=== PATIENT | female | born 1945 | race Hispanic/Latino ===

== ENCOUNTER 2016-07-25 12:46 | Inpatient (IN) | payer MEDICARE, MEDICAID ==
[~2016-07-25] VITALS: Ht 152.4 cm; Wt 122.0 kg
[~2016-07-25 12:46] MED LIST: Albuterol INHALATION; Albuterol/Ipratropium NEB; DULO30CA50 PO; LISI-610 PO; TIZA4TAB4 PO
[2016-07-25 12:49] VITALS: BP 144/80; PULSE 79; RESP 22; O2SAT 92
[2016-07-25 14:08] LABS: BASOPHILS % (AUTO) 0.8 % (0-3); EOSINOPHILS % (AUTO) 1.2 % (0-5); MONOCYTES % (AUTO) 10.2 % (4-12); Mean Corpuscular Volume 89.8 fL (81-100); NEUTROPHILS % (AUTO) 59.2 % (40-74); Platelet Count 275 bil/L (150-400)
[2016-07-25 14:35] LABS: Magnesium 2.2 mg/dL (1.6-2.6)
--- NOTE | 2016-07-25 14:57 | ED.REPORT ---
HPI-General Illness Date of Service July 25, 2016 ED Provider: Jayy Ritter DO Pt is a 70 y.o. female with a hx of COPD, on 2L of home O2, and HTN who presents to the ED c/o bilateral lower extremity weakness gradually worsening over the last week and rapidly worsening today. Pt reports associated difficulty ambulating, right arm "muscular trouble", and bilateral lower extremity pain. She states that her knees have also been "giving out". She claims that she had similar sx about 1 year ago and it was recommended that she take Vitamin D. Pt has an appointment with her PCP this week. Nursing Notes Stated Complaint: WEAKNESS IN LEGS Chief Complaint: General Complaint Nursing Notes Reviewed: Yes Allergies: Coded Allergies: nickel (Unverified Allergy, Severe, Rash, 07/25/16) Scheduled ([Albuterol/Ipratropium]) 3 ML NEBU 3 ML NEB TID Bimatoprost (Lumigan) 45 Drop/2.5 Ml Ophsoln 1 GTT AFFECT_EYE BID Brimonidine Tartrate (Alphagan P) 5 Ml Drops 1 GTT AFFECT_EYE BID Lisinopril (Lisinopril) 30 Mg Tablet 1 TAB PO DAILY Tramadol (Tramadol) 50 Mg Tablet 1 TAB PO DAILY Scheduled PRN ([Albuterol]) 60 PUFF/8 GM INHALER 2 PUFF INHALATION Q4H PRN PRN For Wheezing Lorazepam (Ativan) 0.5 Mg Tablet 1 TAB PO DAILY PRN PRN For Anxiety Miscellaneous Medications Cholecalciferol (Vitamin D3) (Vitamin D3) 10,000 Unit Capsule 10,000 UNIT PO General Time Seen by MD: 14:56 Chief Complaint Weakness (Bilateral lower extremities) Past Medical History Past Medical History Sleep apnea Inguinal hernia Reports: Asthma, COPD, Hypertension Past Surgical History Bladder surgery Bowel obstruction Reports: Appendectomy, Hysterectomy Smoking History Current Every Day Smoker Social History Alcohol Use: Denies alcohol use Drug Use: Denies drug use Other Social History: Ambulatory Status Independent Review of Systems Full Review of Systems Neurologic: Reports: Abnormal movement (Right arm), Problem walking (due to weakness), Weakness (Bilateral lower extremities) Complete sys rev & neg: except as marked. Physical Exam Vital Signs Vital Signs Date Time Temp Pulse Resp B/P Pulse Ox O2 Delivery O2 Flow Rate FiO2 07/25/16 18:58 36.5 82 18 156/72 95 Nasal Cannula 2 07/25/16 15:40 37 57 20 120/75 92 Nasal Cannula 3 07/25/16 12:49 35.9 79 22 144/80 92 Room Air Initial VS: Reviewed Extremities: Vascular intact, Neuro intact Psychiatric: Mood/affect normal, Behavior normal, Normal thought content General/Constitutional: Awake, Alert, Well appearing, Well developed, Well hydrated, Well nourished, Not toxic appearing Appearance / Presentation: Positive: Obese, morbidly Head / Eyes: Atraumatic, Normocephalic, PERRL Respiratory / Chest: Atraumatic, Breath sounds NL, Breath sounds = bilat, No respiratory distress Cardiovascular: Heart rate NL, Regular rhythm, Heart sounds NL, Peripheral circulation NL Abdomen: Atraumatic, Soft, Non-tender, No guarding, No rebound, No distention Neurologic: Oriented X3, Speech NL Full NIH assessment conducted and is 0 Romberg test is positive, patient falling forward Interpretation & Diagnostics Lab Results Interpretation Result Diagram: 07/25/16 1328 07/25/16 1328 Test 07/25/16 13:28 07/25/16 16:19 White Blood Count 12.2th/mm3 (3.8-10.1) Red Blood Count 5.41mil/mm3 (3.90-5.20) Hemoglobin 15.7g/dL (12.0-15.6) Hematocrit 48.6% (35.0-46.0) Mean Corpuscular Volume 89.8fL (81-100) Mean Corpuscular Hemoglobin 29.0pg (27.0-35.0) Mean Corpuscular Hemoglobin Concent 32.3% (32.0-37.0) Red Cell Distribution Width 15.4% (12.3-15.4) Platelet Count 275bil/L (150-400) Neutrophils (%) (Auto) 59.2% (40-74) Lymphocytes (%) (Auto) 28.3% (14-46) Monocytes (%) (Auto) 10.2% (4-12) Eosinophils (%) (Auto) 1.2% (0-5) Basophils (%) (Auto) 0.8% (0-3) Sodium Level 138mEq/L (134-144) Potassium Level 4.9mEq/L (3.5-5.2) Chloride Level 102mEq/L (97-108) Carbon Dioxide Level 22mmol/L (18-29) Blood Urea Nitrogen 19mg/dL (8-27) Creatinine 0.73mg/dL (0.57-1.00) Estimat Glomerular Filtration Rate 114mL/min (>59) Glucose Level 122mg/dL (60-99) Calcium Level 9.7mg/dL (8.5-10.1) Magnesium Level 2.2mg/dL (1.6-2.6) Total Bilirubin 0.2mg/dL (0.0-1.2) Aspartate Amino Transf (AST/SGOT) 27U/L (0-50) Alanine Aminotransferase (ALT/SGPT) 16U/L (0-32) Alkaline Phosphatase 77U/L (25-165) Troponin T < 0.010ug/L (0.0-0.011) Total Protein 7.5g/dL (6.4-8.4) Albumin 3.8g/dL (3.4-5.0) Triglycerides Level 248mg/dL (0-149) Cholesterol Level 229mg/dL (100-199) LDL Cholesterol, Calculated 140.400mg/dL (0-99) VLDL Cholesterol 49.600mg/dL HDL Cholesterol 39mg/dL (>39) Cholesterol/HDL Ratio 5.87 (0.0-4.4) Urine Color Yellow (YELLOW) Urine Appearance Clear (CLEAR,HAZY) Urine pH 5.5 (5.0-8.0) Urine Specific [place] 1.025 (1.003-1.035) Urine Protein Negativemg/dL (NEG,TRACE) Urine Glucose (UA) Negativemg/dL (NEGATIVE) Urine Ketones Negativemg/dL (NEGATIVE) Urine Occult Blood Negative (NEGATIVE) Urine Nitrite Negative (NEGATIVE) Urine Bilirubin Negative (NEGATIVE) Urine Urobilinogen 1.0mg/dL (NORMAL) Urine Leukocyte Esterase Negative (NEGATIVE) Urine RBC 0-2/hpf (0-2) Urine WBC 0-5/hpf (0-5) Urine Epithelial Cells Moderate/hpf (NONE-MOD) Urine Crystals None seen (NONE SEEN) Urine Bacteria Few/hpf (NONE-FEW) Urine Hyaline Casts None/lpf (NONE) Urine Granular Casts None seen (NONE SEEN) Urine Waxy Casts None seen (NONE SEEN) Urine Red Blood Cell Casts None seen (NONE SEEN) Urine White Blood Cell Casts None seen (NONE SEEN) Urine Mucus None seen (None Seen) Urine Trichomonas None seen (NONE SEEN) Urine Yeast None (NONE SEEN) Urinalysis Comment None Urine Culture Reflexed Not indicated ECG Interpretation ECG Interpretation: Rate has decreased compared with 08/22/14 No t-wave abnormalities Time: 16:32 Interpreted by: ED physician Normal ECG Interpretation: Normal rate (88), Normal sinus rhythm X-Ray Chest Interpretation Chest Xray Interpretation: IMPRESSION: Stable cardiomegaly. No acute pulmonary findings. Dictated by: Bia Ford M.D. on 07/25/2016 at 16:29 Approved by: Bia Ford M.D. on 07/25/2016 at 16:30 CT Head Interpretation IMPRESSION: 1. Deep white matter changes within the right frontal lobe and basal ganglia which are new when compared with the most recent study from 2010. These do not have the chronic appearance of encephalomalacia. The acuity of these findings are unknown; however these may represent subacute or early chronic infarct. If further characterization is warranted, MRI of the brain may be helpful. 2. Findings likely associated with chronic microvascular ischemic changes. Dictated by: Bia Ford M.D. on 07/25/2016 at 16:21 Approved by: Bia Ford M.D. on 07/25/2016 at 16:28 Re-Eval/Medical Decision Med Decision/Clinical Course 70-year-old female with a history of morbid obesity, chronic oxygen-dependent COPD, and chronic hypertension presents to the ER with progressive weakness in both of her legs over the past week and falls/instability of her gait. She notes that she falls straight forward and denies falls to one side or the other. NIH score was conducted by myself and is 0. She had a positive Romberg sign, falling forward after her eyes were closed. I discussed her case with Dr. Lopez at [facility] neurology who reviewed her head CT and notes that this is either chronic microvascular ischemic disease which would be more than expected for her age versus a subacute stroke, although strokes do not usually evolve over one week. He recommends MRI and if there is evidence of stroke patient should have full stroke workup including CTA of the head and neck, echocardiogram, lipid panel, and A1c. If the MRI is negative for stroke patient may benefit from physical therapy and weight loss. Source of Hx: Old records Time of Eval: 17:38 Re-Evaluation/Progress Note: Pt rechecked. Discussed imaging results and plan for admit. Pt understands and agrees with plan. Consultation : Referral / Consult Name: Hermila Sykes DO Consulted With: Hospitalist Call Returned at: 18:14 Straight Truck Driver: Accepts admit Note: Discussed pt condition. We will speak with night hospitalist 1914 Dr. Nguyen recommends [facility] stroke. 1934 Dr. Lopez, [facility] neurology reviewed films and recommends MRI to determine if there is T2 enhancement/subacute stroke. If so she should have CTA head and neck, echocardiogram, lipid studies, and A1c. If negative this is chronic microvascular ischemic change, and patient may benefit from physical therapy, weight loss for weakness and falls [address] Love recommendations with Dr. Nguyen, who accepts admission. Counseled Regarding: Diagnosis, Lab results, Need for follow-up, When/why to return to ED Discharge & Departure Primary Impression: Leg weakness, bilateral Additional Impressions: Obesity Obesity type: due to excess calories Obesity severity: morbid Qualified Code: E66.01 - Morbid (severe) obesity due to excess calories COPD (chronic obstructive pulmonary disease) COPD type: unspecified COPD Qualified Code: J44.9 - Chronic obstructive pulmonary disease, unspecified Recurrent falls Disposition: ADMITTED TO HOSPITAL Discharge Condition All VS Reviewed: Yes Condition: No Change Referrals: Kunal Upton MD (PCP) Ernie Attestation Portions of this note were transcribed by Alon Crabtree. I, Dr. Ritter personally performed the history, physical exam and medical decision-making; I reviewed and confirmed the accuracy of the information in the transcribed note. Signed by: Ernie Buck, 07/25/16 and 181 copies to: Kunal Upton MD, Gary R DO July 25, 2016 14:57 ALON CRABTREE July 25, 2016 15:32
[2016-07-25 15:40] VITALS: BP 120/75; PULSE 57; RESP 20; O2SAT 92
--- NOTE | 2016-07-25 16:29 | DRSVH ---
PROCEDURE: CT BRAIN WITHOUT CONTRAST ([id number]) INDICATIONS: weakness, falls TECHNIQUE: Noncontrast 4.5 mm thick angled axial sections acquired from the foramen magnum to the vertex, with c oronal reformats. COMPARISON: None. FINDINGS: Image quality: Excellent. CSF spaces: Basal cisterns are patent. No extra-axial fluid collections. The ventricles are symmet fabio in size and shape. Brain: No intracranial bleeds or masses. There is cerebral volume loss for age, with resultant vent ricular and sulcal prominence. There are periventricular and deep white matter chronic small vessel ischemic changes. Deep white matter changes within the right basal ganglia are noted which are new wh en compared with the prior CT dated 01/17/11. Similarly, deep white matter changes are present within the right frontal lobe. Skull and face: Calvarium and visualized facial bones appear intact, without suspicious lesions. Sinuses: Visualized sinuses and mastoids are clear. IMPRESSION: 1. Deep white matter changes within the right frontal lobe and basal ganglia which are new when abby red with the most recent study from 2010. These do not have the chronic appearance of encephalomalaci a. The acuity of these findings are unknown; however these may represent subacute or early chronic in farct. If further characterization is warranted, MRI of the brain may be helpful. 2. Findings likely associated with chronic microvascular ischemic changes. Dictated by: Bia Ford M.D. on 07/25/2016 at 16:21 Approved by: Bia Ford M.D. on 07/25/2016 at 16:28
--- NOTE | 2016-07-25 16:32 | DRSVH ---
PROCEDURE: X-RAY CHEST, TWO VIEWS ([id number]) INDICATIONS: weakness TECHNIQUE: 2 views of the chest were acquired. COMPARISON: [facility], , CHEST 1VW (PORTABLE), 08/22/2014, 8:54. FINDINGS: This is a limited study due to patient body habitus. Surgical changes and devices: None. Lungs and pleura: No pleural effusions or pneumothorax. Lungs are clear. Mediastinum: Mediastinal contours are normal. Heart size is enlarged, as before. Bones and chest wall: No suspicious bony abnormalities. Soft tissues appear unremarkable. IMPRESSION: Stable cardiomegaly. No acute pulmonary findings. Dictated by: Bia Ford M.D. on 07/25/2016 at 16:29 Approved by: iBa Ford M.D. on 07/25/2016 at 16:30
[2016-07-25 16:50] LABS: APPEARANCE,URINE CLEAR (CLEAR,HAZY); COLOR,URINE YELLOW (YELLOW); OCCULT BLOOD,URINE NEGATIVE (NEGATIVE); PH,URINE 5.5 (5.0-8.0)
[2016-07-25 18:58] VITALS: BP 156/72; PULSE 82; RESP 18; O2SAT 95
[2016-07-25] MEDS ORDERED: Polyethylene Glycol (PEG) 17 Gm Powder PO PRN (19:50)
[2016-07-25] MEDS ORDERED: Labetalol 5 mg/mL 4 mL Inj IVPUSH PRN (19:50)
[2016-07-25] MEDS ORDERED: Ondansetron 2 mg/mL 2 mL Inj IVPUSH PRN (19:50)
[2016-07-25] MEDS ORDERED: Alum-Mag Hydrox-Simeth 30 mL Suspension PO PRN (19:50)
[2016-07-25 19:59] VITALS: BP 156/72; PULSE 82; RESP 18; O2SAT 95
[2016-07-25] MEDS ORDERED: BRIM5DRO2 AFFECT_EYE (20:23)
[2016-07-25] MEDS ORDERED: BIMA2.5D5 AFFECT_EYE (20:23)
[2016-07-25] MEDS ORDERED: TRAM50TA2 PO (20:23)
[2016-07-25] MEDS ORDERED: CHOL-4 PO (20:23)
[2016-07-25] MEDS ORDERED: LORA-302 PO (20:23)
[2016-07-25] MEDS ORDERED: LISI30TA5 PO (20:23)
[2016-07-25 21:50] VITALS: BP 138/76; PULSE 86; RESP 21; O2SAT 97
--- NOTE | 2016-07-25 21:52 | PCM.HPMED ---
Subjective Date of Service July 25, 2016 Primary Provider: Admitting Physician: José Miguel Joyner MD Primary Care Physician: Kunal Upton MD Attending Physician: José Miguel Joyner MD Admit Status: From the Emergency Department, 23-Hour Observation, Remote Telemetry Chief Complaint: Bilateral leg weakness History of Present Illness: Shruthi Quinn is a 70 y.o. female with COPD on 2L of home O2, Obesity and Hypertension who presents to [facility] emergency department with c/o bilateral lower extremity weakness gradually worsening over the last week and rapidly worsening today. Patient is noted to be a poor historian. Patient was able to function daily until about a week ago she started having weakness on both her legs. Over the last 24 hours it has significant worsened to the point the patient cannot get up without feeling of falling forward. Pt reports associated difficulty ambulating, right arm "muscular trouble". She states that her knees have also been "giving out" with pain. She reported numbness on her right hand then right upper arm, this then resolved and she noted some numbness in her left arm then left upper thigh area. Family denies any speech problems or confusion episodes. No visual changes from her baseline glaucoma issues. She claims that she had similar sx about 1 year ago and it was recommended that she take Vitamin D. No prior Strokes She reports compliant with her medications but noted some difficulty controlling her BP. She is not diabetic. She quit smoking about 2 years ago. She uses 2L on oxygen at home due to COPD. She has lost 15 lbs from changing her diet, cutting down on fat and carbohydrates. Case discussed with Dr Ritter, he consulted with document control coordinator [facility] concerning Ct findings. Patient will be admitted, not a TPA candidate due to timing of > 1 week and NIH score 0. Review of Systems: Pertinent positives as noted in HPI. All other systems were reviewed and are negative Allergies Coded Allergies: nickel (Unverified Allergy, Severe, Rash, 07/25/16) Home Medications From patient's list Lisinopril 30 mg daily Ativan 0.5 mg daily Tramadol 50 mg daily Vitamin D3 10,000 units daily Lumigan both eyes Alphagan both eyes DuoNeb neb tid prn Ventolin HFA inh q 4 hours prn PMH Morbid obesity (BMI 58.5). Possible obstructive sleep apnea. Asthma/COPD on home oxygen Hypertension. Nicotine dependence, now in remission Inguinal hernia. . Surgical History Bladder surgery. Hysterectomy. Family History Mother and her family has Stroke patient did not know her biological Father that well Social History Hx Alcohol Use: No Hx Substance Use: No Hx Tobacco Use: Yes Smoking Status: Current Every Day Smoker Living Arrangement: with Family Exam Vital Signs Vital Sign - Last Date Time Temp Pulse Resp B/P Pulse Ox O2 Delivery O2 Flow Rate FiO2 07/25/16 18:58 36.5 82 18 156/72 95 Nasal Cannula 2 Exam General: Alert, Oriented X3, Cooperative, No acute Distress Eyes: PERRLA, Scleral Anicteric Mouth: Mouth Normal, Mucous Membranes Moist/Dowling Neck: Supple, no Thyromegaly, trachea central. Chest & Lungs: Clear to auscultation & percussion, No adventitious breath sounds, no crackles, no wheeze Cardiovascular: Normal S1, Normal S2, No Murmurs/Rubs/Gallops, Regular Rate/ Rhythm, (No JVD, no peripheral edema) Pulses: Radial (present and equal), Dorsalis Pedi (present and equal) Abdomen: Soft, Non-tender, Non-distended, Normoactive bowel tones. Musculoskeletal: Unremarkable. Normal range of motion, no swollen or erythematous joints Extremities: No edema, no cyanosis, no clubbing. Skin: No rashes. Warm and dry, no erythematous areas Lymphatic: Lymph nodes Cervical and Axillary not palpable. Neurological: NIH score 0 Mental Status: Awake and alert without slurred speech Cranial nerves: PERRL. Extraocular movements are intact with no nystagmus. Visual dennison are full to direct confrontation. The face is symmetric, tongue midline Motor: Normal tone. She is able to hold both arms and legs up off the bed but does not participate in formal testing. 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 Sensation: Intact to light touch throughout Coordination: Cerebellar testing intact Reflexes: 2 throughout, toes withdraw Gait: not tested Lab and Diagnostics Labs Laboratory Tests Test 07/25/16 13:28 07/25/16 16:19 White Blood Count 12.2th/mm3 (3.8-10.1) Red Blood Count 5.41mil/mm3 (3.90-5.20) Hemoglobin 15.7g/dL (12.0-15.6) Hematocrit 48.6% (35.0-46.0) Mean Corpuscular Volume 89.8fL (81-100) Mean Corpuscular Hemoglobin 29.0pg (27.0-35.0) Mean Corpuscular Hemoglobin Concent 32.3% (32.0-37.0) Red Cell Distribution Width 15.4% (12.3-15.4) Platelet Count 275bil/L (150-400) Neutrophils (%) (Auto) 59.2% (40-74) Lymphocytes (%) (Auto) 28.3% (14-46) Monocytes (%) (Auto) 10.2% (4-12) Eosinophils (%) (Auto) 1.2% (0-5) Basophils (%) (Auto) 0.8% (0-3) Sodium Level 138mEq/L (134-144) Potassium Level 4.9mEq/L (3.5-5.2) Chloride Level 102mEq/L (97-108) Carbon Dioxide Level 22mmol/L (18-29) Blood Urea Nitrogen 19mg/dL (8-27) Creatinine 0.73mg/dL (0.57-1.00) Estimat Glomerular Filtration Rate 114mL/min (>59) Glucose Level 122mg/dL (60-99) Calcium Level 9.7mg/dL (8.5-10.1) Magnesium Level 2.2mg/dL (1.6-2.6) Total Bilirubin 0.2mg/dL (0.0-1.2) Aspartate Amino Transf (AST/SGOT) 27U/L (0-50) Alanine Aminotransferase (ALT/SGPT) 16U/L (0-32) Alkaline Phosphatase 77U/L (25-165) Troponin T < 0.010ug/L (0.0-0.011) Total Protein 7.5g/dL (6.4-8.4) Albumin 3.8g/dL (3.4-5.0) Urine Color Yellow (YELLOW) Urine Appearance Clear (CLEAR,HAZY) Urine pH 5.5 (5.0-8.0) Urine Specific [place] 1.025 (1.003-1.035) Urine Protein Negativemg/dL (NEG,TRACE) Urine Glucose (UA) Negativemg/dL (NEGATIVE) Urine Ketones Negativemg/dL (NEGATIVE) Urine Occult Blood Negative (NEGATIVE) Urine Nitrite Negative (NEGATIVE) Urine Bilirubin Negative (NEGATIVE) Urine Urobilinogen 1.0mg/dL (NORMAL) Urine Leukocyte Esterase Negative (NEGATIVE) Urine RBC 0-2/hpf (0-2) Urine WBC 0-5/hpf (0-5) Urine Epithelial Cells Moderate/hpf (NONE-MOD) Urine Crystals None seen (NONE SEEN) Urine Bacteria Few/hpf (NONE-FEW) Urine Hyaline Casts None/lpf (NONE) Urine Granular Casts None seen (NONE SEEN) Urine Waxy Casts None seen (NONE SEEN) Urine Red Blood Cell Casts None seen (NONE SEEN) Urine White Blood Cell Casts None seen (NONE SEEN) Urine Mucus None seen (None Seen) Urine Trichomonas None seen (NONE SEEN) Urine Yeast None (NONE SEEN) Urinalysis Comment None Urine Culture Reflexed Not indicated Result Diagram: 07/25/16 1328 07/25/16 1328 X-Rays, CTs and MRIs CT BRAIN WITHOUT CONTRAST 07/25 IMPRESSION: 1. Deep white matter changes within the right frontal lobe and basal ganglia which are new when compared with the most recent study from 2010. These do not have the chronic appearance of encephalomalacia. The acuity of these findings are unknown; however these may represent subacute or early chronic infarct. If further characterization is warranted, MRI of the brain may be helpful. 2. Findings likely associated with chronic microvascular ischemic changes. Dictated by: iBa Ford M.D. on 07/25/2016 at 16:21 Approved by: Bia Ford M.D. on 07/25/2016 at 16:28 X-RAY CHEST, TWO VIEWS 07/25 IMPRESSION: Stable cardiomegaly. No acute pulmonary findings. Dictated by: Bia Ford M.D. on 07/25/2016 at 16:29 Approved by: Bia Ford M.D. on 07/25/2016 at 16:30 Assessment & Plan Shruthi Quinn is a 70 y.o. female with COPD on 2L of home O2, Obesity and Hypertension who presents to [facility] emergency department with c/o bilateral lower extremity weakness 1. Bilateral leg weakness secondary to Deep white matter changes within the right frontal lobe and basal ganglia. Present on admission Dr Ritter spoke to [facility] who felt patient likely have a demyelinating disease due to microvascular disease due to Hypertension. The acuity of these findings is still unclear. Several risk factors for Stroke identified including Obesity, Hypertension, possible Sleep apnea and family history of Strokes - monitor on telemetry for Atrial fibrillation - Stroke workup with complete echo. 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 Patient reporting high BP readings and developing head aches - allow permissive hypertension till we rule out acute Stroke - discussed the importance of controlling BP to avoid further complications 3 Nicotine dependence. in remission I congratulated the patient on this achievement 4 Morbid Obesity and possible Obstructive Sleep apnea Patient was suppose to have a sleep study but she cancelled - patient encouraged to continue of her current diet and goals of losing more weight - patient will schedule a Sleep study as outpatient at [facility] 5 COPD and chronic respiratory failure No clinical evidence of acute exacerbation - continue oxygen supplementation - target 88-92% to avoid suppression of respiratory drive - Acetaminophen as needed for mild pain/fever/headache - Bowel regimen as needed - Antiemetic as needed Patient is admitted under observation status with expected length of stay less than 2 midnights due to severity of presenting symptoms, risk of adverse event, and complexity of treatment plan. . Resuscitation Status: CPR: Attempt Resuscitation José Miguel Joyner MD July 25, 2016 19:54
[2016-07-25] MEDS: Brimonidine 0.2% 5 mL Ophthalmic Solution BOTH_EYES SCH (23:13)
[2016-07-25] MEDS: LORazepam 0.5 mg Tablet PO PRN (23:13)
[2016-07-26] VITALS (12 sets, daily range): BP systolic 124–162; BP diastolic 67–87; PULSE 73–91; RESP 18–22; O2SAT 91–94
[2016-07-26] MEDS ORDERED: Albuterol 2.5 mg/3 mL Inhalation Solution NEB PRN (07:00)
[2016-07-26] MEDS: Albuterol-Ipratropium 3 mL Inhalation Solution NEB SCH ×4 (08:30→20:45)
[2016-07-26] MEDS: Brimonidine 0.2% 5 mL Ophthalmic Solution BOTH_EYES SCH ×2 (09:22→20:10)
[2016-07-26] MEDS: LORazepam 0.5 mg Tablet PO PRN (11:10)
--- NOTE | 2016-07-26 12:17 | PCM.PNMED ---
Subjective Date of Service July 26, 2016 Subjective Patient continues to experience weakness of essentially all upper and lower extremities, difficulties with ambulation. Condition appears essentially unchanged since our presentation. She has no pain at this time however denies any palpitations or shortness of breath as well. No other acute complaints at this time Exam Vital Signs Vital Sign - Last Date Time Temp Pulse Resp B/P Pulse Ox O2 Delivery O2 Flow Rate FiO2 07/26/16 12:04 86 18 91 Room Air 07/26/16 11:19 36.8 07/26/16 10:44 150/78 2.00 Intake and Output 07/25/16 07/25/16 07/26/16 Cumulative From/Thru 15:00 23:00 07:00 07/25/16 12:49 - 07/26/16 06:29 Intake Total 400 ml 400 ml Output Total 300 ml 300 ml Balance 100 ml 100 ml Intake Oral 400 ml 400 ml IV Total 0 ml 0 ml Output Urine Total 300 ml 300 ml General: Alert, Oriented X3, Cooperative, Mild Distress, Other (morbidly obese) Eyes: PERRLA, EOMI Chest & Lungs: Clear to auscultation & percussion Cardiovascular: Regular Rate/Rhythm Abdomen: Non-tender, Non-distended Extremities: No cyanosis/clubbing/edma bilat Neurological: Grossly Neurologically Intact, Cranial Nerves 2-12 Intact, Other (stable weakness of upper and lower extremities endorsed) IVs and Medications Medications Reviewed: Medications were reviewed in detail Lab and Diagnostics Result Diagram: 07/25/16 1328 07/25/16 1328 X-Rays, CTs and MRIs CT BRAIN WITHOUT CONTRAST 07/25 IMPRESSION: 1. Deep white matter changes within the right frontal lobe and basal ganglia which are new when compared with the most recent study from 2010. These do not have the chronic appearance of encephalomalacia. The acuity of these findings are unknown; however these may represent subacute or early chronic infarct. If further characterization is warranted, MRI of the brain may be helpful. 2. Findings likely associated with chronic microvascular ischemic changes. Dictated by: Bia Ford M.D. on 07/25/2016 at 16:21 Approved by: Bia Ford M.D. on 07/25/2016 at 16:28 X-RAY CHEST, TWO VIEWS 07/25 IMPRESSION: Stable cardiomegaly. No acute pulmonary findings. Dictated by: Bia Ford M.D. on 07/25/2016 at 16:29 Approved by: Bia Ford M.D. on 07/25/2016 at 16:30 Assessment & Plan Shruthi Quinn is a 70 y.o. female with COPD on 2L of home O2, Obesity and Hypertension who presents to [facility] emergency department with c/o bilateral lower extremity weakness 1. Bilateral leg weakness secondary to Deep white matter changes within the right frontal lobe and basal ganglia. Present on admission Dr Ritter spoke to [facility]rology who felt patient likely have a demyelinating disease due to microvascular disease due to Hypertension. The acuity of these findings is still unclear. Several risk factors for Stroke identified including Obesity, Hypertension, possible Sleep apnea and family history of Strokes - monitor on telemetry for Atrial fibrillation - Stroke workup with complete echo and carotid ultrasound pending. - MR brain study additionally a part of stroke protocol can unfortunately not be conducted given patient's body habitus. We will reconsider repeat CT scan in a.m. for further evaluation of possible location of stroke if present. - Aspirin for antiplatelet therapy and secondary prevention (discussed this with patient) - Lipids demonstrate LDL 140 supporting hyperlipidemia, HDL borderline and A1c still pending, - Physical therapy and Speech evaluation requested - community health outreach worker to aid in placement if needed 2 Hypertension Likely uncontrolled. Patient reporting high BP readings and developing head aches - allow permissive hypertension till we rule out acute Stroke - discussed the importance of controlling BP to avoid further complications - More aggressive treatment of hypertension will be addressed in a.m.. 3 Nicotine dependence. in remission 4 Morbid Obesity and possible Obstructive Sleep apnea Patient was suppose to have a sleep study but she cancelled - patient encouraged to continue of her current diet and goals of losing more weight - patient will consider scheduling a Sleep study as outpatient at [facility] 5 COPD and chronic respiratory failure No clinical evidence of acute exacerbation - continue oxygen supplementation - target 88-92% to avoid suppression of respiratory drive Patient is admitted under observation status with expected length of stay less than 2 midnights due to severity of presenting symptoms, risk of adverse event, and complexity of treatment plan. . Pain Evaluation: Adequate Pain Control Resuscitation Status: CPR: Attempt Resuscitation Time spent 30 minutes Luis Gilbert DO July 26, 2016 12:17
--- NOTE | 2016-07-26 17:59 | DRSVH ---
PROCEDURE: US BILATERAL DUPLEX DOPPLER IMAGING OF THE CAROTIDS ([id number]) INDICATIONS: R/O Carotid Disease if no MRA or CTA Neck TECHNIQUE: Color and pulse Doppler interrogation was performed of both carotid systems, with image documentation and velocity measurements. COMPARISON: None. FINDINGS: All stenosis calculations are based on NASCET criteria. Right side: Brachial blood pressure: 162/80 mm Hg. Common carotid artery peak systolic velocity: 46 cm/sec. Internal carotid artery peak systolic velocity: 96 cm/sec. Internal carotid artery end diastolic velocity: 22 cm/sec. External carotid artery peak systolic velocity: 98 cm/sec. ICA/CCA peak systolic ratio: 2.1. Whealtey scale imaging description: Moderate echogenic plaque at the bifurcation. Percent internal carotid artery stenosis: Less than 50%. Vertebral artery: Not seen. Left side: Brachial blood pressure: 124/67 mm Hg. Common carotid artery peak systolic velocity: 110 cm/sec. Internal carotid artery peak systolic velocity: 111 cm/sec. Internal carotid artery end diastolic velocity: 21 cm/sec. External carotid artery peak systolic velocity: 147 cm/sec. ICA/CCA peak systolic ratio: 1.01. Wheatley scale imaging description: Moderate echogenic plaque at the bifurcation Percent internal carotid artery stenosis: Less than 50%. Vertebral artery: Not seen. IMPRESSION: 1. Differential brachial blood pressure, suggestive of left subclavian, brachial, or axillary artery stenosis. 2. Less than 50% bilateral internal carotid artery stenosis. 3. Vertebral arteries not seen. Dictated by: Lavon Chávez M.D. on 07/26/2016 at 17:56 Approved by: Lavon Chávez M.D. on 07/26/2016 at 17:57
[2016-07-27] VITALS (12 sets, daily range): BP systolic 135–172; BP diastolic 62–83; PULSE 78–103; RESP 18–22; O2SAT 91–97
[2016-07-27] MEDS: Brimonidine 0.2% 5 mL Ophthalmic Solution BOTH_EYES SCH ×2 (08:30→21:40)
[2016-07-27] MEDS: Albuterol-Ipratropium 3 mL Inhalation Solution NEB SCH ×3 (08:38→20:40)
--- NOTE | 2016-07-27 15:36 | DRSVH ---
PROCEDURE: CT ANGIO HEAD AND NECK (P) INDICATIONS: TIA TECHNIQUE: Pre-contrast 4.5 mm thick sections acquired from the foramen magnum to the vertex. After the adminis tration of intravenous contrast, 1 mm thick sections acquired from the aortic arch through the [place] of [place]. Post-contrast 4.5 mm thick sections then re-acquired from the foramen magnum to the vert ex. 3-dimensional ggpaqak-teucvajtv-gxnrtdzmva (MIP) and/or volume rendering reformats were acquired of the central intracranial vasculature and neck separately. For radiation dose reduction, the foll owing was used: automated exposure control, adjustment of mA and/or kV according to patient size. COMPARISON: [facility], CT, CT BRAIN WO CON, 07/25/2016, 16:02. [facility], US, US CAROTID DPLX DOPPLER BILAT, 07/26/2016, 17:16. FINDINGS: Image quality: Excellent. BRAIN: CSF spaces: Ventricles are normal in size and shape. Basal cisterns are patent. No extra-axial flu id collections. Brain: No midline shift. No intracranial bleeds or masses. Wheatley-white matter interface appears int act. Mild patchy low density within the periventricular and subcortical white matter. Skull and face: Calvarium and facial bones appear intact, without suspicious lesions. Orbits appear normal. Sinuses: Sinuses and mastoids are clear. HEAD CT ANGIOGRAPHY: Anterior circulation: Intracranial internal carotid arteries are normal in size and flow. The flow within the paired anterior cerebral arteries is normal and symmetric. The flow within the middle cer ebral arteries is normal and symmetric. The anterior communicating artery is seen. No aneurysms are seen. Posterior circulation: Visualized portions of the vertebral arteries demonstrate normal caliber, and join to form a normal appearing basilar artery. Flow within the posterior cerebral arteries is norm al and symmetric. No aneurysms are seen. NECK CT ANGIOGRAPHY: Carotid system: The great vessels demonstrate a conventional anatomy as they arise from the aortic a rch. The origins of the common carotid arteries appear patent. The common carotid arteries demonstr ate normal caliber and courses. There is no significant right and terminal carotid artery stenosis. T here is high grade, roughly 80% origin stenosis of the left internal carotid artery origin. Posterior circulation: The origins of the vertebral arteries both appear widely patent. The more erwin perior extracranial portions of both vertebral arteries also demonstrate normal courses and calibers. They join to form a normal appearing basilar artery. Soft tissues: Visualized neck soft tissues demonstrate no suspicious abnormalities. Bones: No suspicious bony lesions. Visualized cervical spine appears normally aligned. IMPRESSION: 1. High-grade, roughly 80% left internal carotid artery origin stenosis. No significant right interna l carotid artery stenosis. 2. Patent bilateral vertebral arteries. 3. No acute intracranial abnormality. Mild volume loss and small vessel ischemic disease. Dictated by: Lavon Chávez M.D. on 07/27/2016 at 15:30 Approved by: Lavon Chávez M.D. on 07/27/2016 at 15:34
--- NOTE | 2016-07-27 18:01 | DRSVH ---
[facility] [address] [place] [address] Echocardiogram Report Name: JULIANNA THOMAS Date: Height: 60 in Hospital Exam Location: [facility] Weight: 267 lb Gender: Female BSA: 2.1 m2 : 1945 Age: 70 yrs BP: 136/65 mmHg Reason For Study: CVA Ordering Physician: HOSPITALIST SVerformed By: Fior Palomo Referring Physician: Dr. Kunal Upton Interpretation Summary The study quality was technically difficult. The left ventricle is normal in size.There is no LV thrombus. The left ventricle is hyperdynamic. The ejection fraction is estimated to be 75-80%. There has been no significant change in LV EF since the previous study. The right ventricle is grossly normal size. The right ventricular systolic function is normal. Increased aortic valve and LVOT velocity due to hyperdynamic LV without any significant LVOT obstruction. No significant valvular pathology seen. The ascending aorta is mildly enlarged. Injection of contrast documented no interatrial shunt. Procedure: A two-dimensional transthoracic echocardiogram with color flow and Doppler was performed. The study quality was technically difficult. A contrast injection of Definity was performed to improve assessment of LV function. Contrast was injected into an intravenous site in the right arm. A total of 7 cc of contrast was given. Comparison is made with the echocardiogram of 08-21-2014. The subcostal views were not obtained due to no visualization. The patient was in normal sinus rhythm during the exam. Left Ventricle: The left ventricle is normal in size. Left ventricular wall thickness is mild-moderately increased. Proximal septal thickening is noted. There is no thrombus. The left ventricle is hyperdynamic. The ejection fraction is estimated to be 75-80%. There has been no significant change since the previous study. There are no focal wall motion abnormalities. Spectral Doppler of the mitral valve is reversed, with an E/A wave ratio < 1.0. Right Ventricle: The right ventricle is grossly normal size. The right ventricular systolic function is normal. Atria: Both atria are normal in size. There has been no significant change since the previous study. There is no Doppler evidence for an interatrial shunt. Injection of contrast documented no interatrial shunt. Mitral Valve: The mitral valve is grossly normal. There is trace mitral regurgitation. Aortic Valve: The aortic valve opens well. The aortic valve is not well visualized. There is no aortic valve stenosis. Increased aortic valve and LVOT velocity due to hyperdynamic LV without any significant LVOT obstruction. No aortic regurgitation is present. Tricuspid Valve: The tricuspid valve is not well visualized, but is grossly normal. There is trace tricuspid regurgitation. Pulmonary artery pressures cannot be estimated because of the lack of a measurable TR jet velocity. Pulmonic Valve: The pulmonic valve is not well visualized. Great Vessels: The aortic root is normal size. The ascending aorta is mildly enlarged. The pulmonary is not well visualized. The inferior vena cava was not visualized. Pericardium/ Pleura There is no pericardial effusion. There is an anterior echo-free space consistent with a fat pad. There is no pleural effusion. MMode/2D Measurements & Calculations LVIDd: 4.3 cm LA dimension: 4.1 cm RA long axis AoV Opening LVIDs: 2.8 cm FS: 34.1 % LA A2 area: 21.6 cm RA area Ao root diam IVSd: 1.6 cm LA A4 area: 18.3 cm LVPWd: 1.3 cm LA length (vol) : 16.8 cm asc Aorta Diam RA vol LA vol: 56.1 ml : 45.7 ml Ao Arch Diam (Prox LA vol index RA Trans): 2.7 cm : 21.6 mm2 : 26.6 ml/m2 LV adams. diameter/BSA LV sys. diameter/BSA (cm/m^2): 2.0 (cm/m^2): 1.3 Doppler Measurements & Calculations Ao V2 max: 273.8 cm/secMV E max michael MV E/A: 0.88 PA V2 max Ao max P.0 mmHg : 89.6 cm/sec Med Peak E' Michael : 131.5 cm/sec Ao mean P.3 mmHg MV A max michael PA mean PG LVOT Max Michael : 101.3 cm/sec E/E' med: 16.4 : 133.0 cm/sec MV P1/2t Lat Peak E' Michael PA Accel Time sev ratio: 0.41 : 75.8 msec : 0.09 sec E/E' lat: 11.9 E/e' average Pulm A Revs Dur MV A dur : 0.14 sec MV P1/2t max michael Ao V2 mean LV V1 max PG PA V2 mean : 185.8 cm/sec : 91.6 cm/sec Ao V2 VTI: 49.4 cm LV V1 VTI MVA(P1/2t): 2.9 cm2 : 20.2 cm Pulm A Revs Dur - MV A Dur: 0.00 msec Reading Physician:PM
--- NOTE | 2016-07-27 20:09 | PCM.PNMED ---
Subjective Date of Service July 27, 2016 Subjective Patient was seen and examined at bedside today. Patient denies any chest pain, shortness of breath, nausea, vomiting, diarrhea. Patient still complains of weakness Overnight events: None Exam Vital Signs Vital Sign - Last Date Time Temp Pulse Resp B/P Pulse Ox O2 Delivery O2 Flow Rate FiO2 07/27/16 18:58 36.9 89 20 156/80 94 Room Air 07/27/16 06:21 1.00 Intake and Output 07/26/16 07/26/16 07/27/16 Cumulative From/Thru 15:00 23:00 07:00 07/25/16 12:49 - 07/27/16 06:21 Intake Total 1018 ml 400 ml 1818 ml Output Total 900 ml 800 ml 2000 ml Balance 118 ml -400 ml -182 ml Intake Oral 1018 ml 400 ml 1818 ml IV Total 0 ml Output Urine Total 900 ml 800 ml 2000 ml # Voids 2 2 # Bowel Movements 2 2 Exam Physical Exam: GEN: Patient was awake, alert, responding appropriately to questions HEENT: Pupils equal round and reactive to light, extraocular eye muscles intact , Neck soft supple, trachea midline, nomocephalic/atraumatic CV: Distant heart sounds Respiratory: CTAB, no wheezes, rales, rhonchi GI: +bowel sounds x4, soft, compressible, nontender to palpation EXT: no clubbing, cyanosis, edema Neuro: Cranial nerves II-XII grossly intact Musculoskeletal: 07/24 lower extremity and upper extremity strength Psych: mood and affect were appropriate IVs and Medications Medications Reviewed: Medications were reviewed in detail Lab and Diagnostics Result Diagram: 07/25/16 1328 07/25/16 1328 X-Rays, CTs and MRIs CT BRAIN WITHOUT CONTRAST 07/25 IMPRESSION: 1. Deep white matter changes within the right frontal lobe and basal ganglia which are new when compared with the most recent study from 2010. These do not have the chronic appearance of encephalomalacia. The acuity of these findings are unknown; however these may represent subacute or early chronic infarct. If further characterization is warranted, MRI of the brain may be helpful. 2. Findings likely associated with chronic microvascular ischemic changes. Dictated by: Bia Ford M.D. on 07/25/2016 at 16:21 Approved by: Bia Ford M.D. on 07/25/2016 at 16:28 X-RAY CHEST, TWO VIEWS 07/25 IMPRESSION: Stable cardiomegaly. No acute pulmonary findings. Dictated by: Bia Ford M.D. on 07/25/2016 at 16:29 Approved by: Bia Ford M.D. on 07/25/2016 at 16:30 Assessment & Plan Shruthi Quinn is a 70 y.o. female with COPD on 2L of home O2, Obesity and Hypertension who presents to [facility] emergency department with c/o bilateral lower extremity weakness Bilateral leg weakness secondary to Deep white matter changes within the right frontal lobe and basal ganglia. Present on admission Dr Ritter spoke to [facility] who felt patient likely have a demyelinating disease due to microvascular disease due to Hypertension. The acuity of these findings is still unclear. Several risk factors for Stroke identified including Obesity, Hypertension, possible Sleep apnea and family history of Strokes - monitor on telemetry for Atrial fibrillation - Stroke workup with complete echo and carotid ultrasound pending. - MR brain study additionally a part of stroke protocol can unfortunately not be conducted given patient's body habitus. We will reconsider repeat CT scan in a.m. for further evaluation of possible location of stroke if present. - Aspirin for antiplatelet therapy and secondary prevention (discussed this with patient) - Lipids demonstrate LDL 140 supporting hyperlipidemia, HDL borderline and A1c still pending, - Physical therapy and Speech evaluation requested - vacuum worker to aid in placement if needed Hypertension Likely uncontrolled. Patient reporting high BP readings and developing head aches - allow permissive hypertension till we rule out acute Stroke - discussed the importance of controlling BP to avoid further complications - More aggressive treatment of hypertension will be addressed in a.m.. Nicotine dependence. in remission Morbid Obesity and possible Obstructive Sleep apnea Patient was suppose to have a sleep study but she cancelled - patient encouraged to continue of her current diet and goals of losing more weight - patient will consider scheduling a Sleep study as outpatient at [facility] and chronic respiratory failure No clinical evidence of acute exacerbation - continue oxygen supplementation - target 88-92% to avoid suppression of respiratory drive Disposition: Patient is to have CT angiogram of the head and an echo today will follow up with the results and treat accordingly. Patient is also requesting a nutrition consult. Resuscitation Status: CPR: Attempt Resuscitation Randa Pond DO July 27, 2016 20:09
[2016-07-28 01:14] VITALS: BP 151/72; PULSE 89; RESP 20; O2SAT 96
[2016-07-28 04:19] VITALS: BP 168/72; PULSE 79; RESP 24; O2SAT 91
[2016-07-28] MEDS: Albuterol-Ipratropium 3 mL Inhalation Solution NEB SCH ×2 (06:24→14:23)
[2016-07-28 06:25] VITALS: PULSE 82; RESP 18; O2SAT 92
[2016-07-28 07:12] LABS: Mean Corpuscular Hemoglobin 28.5 pg (27.0-35.0); Mean Corpuscular Volume 91.3 fL (81-100)
[2016-07-28] MEDS: Brimonidine 0.2% 5 mL Ophthalmic Solution BOTH_EYES SCH (07:54)
[2016-07-28 10:52] VITALS: BP 150/71; PULSE 78; RESP 22; O2SAT 94
[2016-07-28 11:03] VITALS: PULSE 85
[2016-07-28] MEDS ORDERED: CLOP75TA28 PO (12:14)
[2016-07-28] MEDS ORDERED: LISI30TA5 PO (12:14)
[2016-07-28] MEDS ORDERED: ATOR40TA69 PO (12:14)
[2016-07-28] MEDS ORDERED: ASPI-973 PO (12:14)
--- NOTE | 2016-07-28 12:41 | PCM.DIMED ---
Discharge Instructions Date of Service July 28, 2016 Dates of Hospitalization July 25, 2016 at 19:27 Discharge Diagnosis Discharge Diagnosis Bilateral lower extremity weakness secondary to CVA Hypertension Nicotine dependence Morbid obesity with possible sleep apnea COPD Medication Instructions Medications have been prescribed you aspirin and Plavix please take them daily as they are to help prevent any further stroke or TIA symptoms. Test Results The test results for your thyroid came back normal Diet Low fat, Low Sodium, Heart Healthy Activity Outpatient Physical Therapy (gradually return to normal daily activities) Call your provider Fever or Chills, Shortness of breath, Chest pain, Weakness (unilateral) Patient Instructions A new primary care physician has been assigned T Dr. Roshan Polanco please follow-up with him in clinic. You should also follow-up with cardiology within the next 4-6 weeks. Follow-up Provider: Roshan Polanco DO Follow-up with PCP in: 1 week (you have an appointment with Dr. Roshan Polanco your new PCP on 08/05/2016 at 4:00 PM please call [phone] for any further questions) Provider: CARDIOLOGY,[facility] Follow-up in: 4 weeks (a referral has been sent to the [facility] for cardiology. Please follow-up with cardiology if you do not hear from them please call [phone] to make an appointment) Randa Pond DO July 28, 2016 12:41
--- NOTE | 2016-07-28 12:44 | PCM.DC.MED ---
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 Deep white matter changes within the right frontal lobe and basal ganglia which are new when compared with the most recent study from 2010. These do not have the chronic appearance of encephalomalacia. The acuity of these findings are unknown; however these may represent subacute or early chronic infarct. If further characterization is warranted, MRI of the brain may be helpful. 2. Findings likely associated with chronic microvascular ischemic changes. Dictated by: Bia Ford M.D. on 07/25/2016 at 16:21 Approved by: Bia Ford M.D. on 07/25/2016 at 16:28 X-RAY CHEST, TWO VIEWS 07/25 IMPRESSION: Stable cardiomegaly. No acute pulmonary findings. Dictated by: Bia Ford M.D. on 07/25/2016 at 16:29 Approved by: Bia Ford M.D. on 07/25/2016 at 16:30 Cardiac Echo Impression PROCEDURE: CT ANGIO HEAD AND NECK (P) INDICATIONS: TIA IMPRESSION: 1. High-grade, roughly 80% left internal carotid artery origin stenosis. No significant right internal carotid artery stenosis. 2. Patent bilateral vertebral arteries. 3. No acute intracranial abnormality. Mild volume loss and small vessel ischemic disease. Dictated by: Lavon Chávez M.D. on 07/27/2016 at 15:30 Approved by: Lavon Chávez M.D. on 07/27/2016 at 15:34 PROCEDURE: US BILATERAL DUPLEX DOPPLER IMAGING OF THE CAROTIDS ([id number]) INDICATIONS: R/O Carotid Disease if no MRA or CTA Neck IMPRESSION: 1. Differential brachial blood pressure, suggestive of left subclavian, brachial , or axillary artery stenosis. 2. Less than 50% bilateral internal carotid artery stenosis. 3. Vertebral arteries not seen. Dictated by: Lavon Chávez M.D. on 07/26/2016 at 17:56 Approved by: Lavon Chávez M.D. on 07/26/2016 at 17:57 Brief History Shruthi Quinn is a 70 y.o. female with COPD on 2L of home O2, Obesity and Hypertension who presents to [facility] emergency department with c/o bilateral lower extremity weakness gradually worsening over the last week and rapidly worsening today. Patient is noted to be a poor historian. Patient was able to function daily until about a week ago she started having weakness on both her legs. Over the last 24 hours it has significant worsened to the point the patient cannot get up without feeling of falling forward. Pt reports associated difficulty ambulating, right arm "muscular trouble". She states that her knees have also been "giving out" with pain. She reported numbness on her right hand then right upper arm, this then resolved and she noted some numbness in her left arm then left upper thigh area. Family denies any speech problems or confusion episodes. No visual changes from her baseline glaucoma issues. She claims that she had similar sx about 1 year ago and it was recommended that she take Vitamin D. No prior Strokes She reports compliant with her medications but noted some difficulty controlling her BP. She is not diabetic. She quit smoking about 2 years ago. She uses 2L on oxygen at home due to COPD. She has lost 15 lbs from changing her diet, cutting down on fat and carbohydrates. Case discussed with Dr Ritter, he consulted with field contact person [facility] concerning Ct findings. Patient will be admitted, not a TPA candidate due to timing of > 1 week and NIH score 0. Hospital Course Shruthi Quinn is a 70 y.o. female with COPD on 2L of home O2, Obesity and Hypertension who presents to [facility] emergency department with c/o bilateral lower extremity weakness Patient presented with the complaint of COPD exacerbation and LE weakness. Patient was brought in and worked up for possible TIA. Patient has had multiple TIAs in the past. Patient was unable to have a brain MRI secondary to being too large for the MRI scanner. CTA of the brain was normal however CTA of the carotid showed stenosis. The patient did have some concerns that she may have hypothyroid disease however TSH was taken and found to be within normal limits. The patient has been instructed to follow-up with her new PCP Dr. Polanco for further help with weight loss and medical management. The patient has been encouraged to start with 10-20 minute walks daily and Pilates as well as both of these activities are very low impact and something that can be done at home. Nutrition was consulted and advised the patient on good nutrition. The patient was discharged home in stable condition See below for full hospital course: Bilateral leg weakness secondary to Deep white matter changes within the right frontal lobe and basal ganglia. Present on admission Dr Ritter spoke to [facility] who felt patient likely have a demyelinating disease due to microvascular disease due to Hypertension. The acuity of these findings is still unclear. Several risk factors for Stroke identified including Obesity, Hypertension, possible Sleep apnea and family history of Strokes - monitor on telemetry for Atrial fibrillation - Stroke workup with complete echo and carotid ultrasound pending. - MR brain study additionally a part of stroke protocol can unfortunately not be conducted given patient's body habitus. We will reconsider repeat CT scan in a.m. for further evaluation of possible location of stroke if present. 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 Patient reporting high BP readings and developing head aches - allow permissive hypertension till we rule out acute Stroke - discussed the importance of controlling BP to avoid further complications - More aggressive treatment of hypertension will be addressed in a.m.. Nicotine dependence. in remission Morbid Obesity and possible Obstructive Sleep apnea Patient was suppose to have a sleep study but she cancelled - patient encouraged to continue of her current diet and goals of losing more weight - patient will consider scheduling a Sleep study as outpatient at [facility] COPD and chronic respiratory failure No clinical evidence of acute exacerbation - continue oxygen supplementation - target 88-92% to avoid suppression of respiratory drive Exam Vital Signs (Last) Date Time Temp Pulse Resp B/P Pulse Ox O2 Delivery O2 Flow Rate FiO2 07/28/16 11:03 85 07/28/16 10:52 36.3 22 150/71 94 Nasal Cannula 1.00 Exam Physical Exam: GEN: Patient was awake, alert, responding appropriately to questions HEENT: Pupils equal round and reactive to light, extraocular eye muscles intact , Neck soft supple, trachea midline, nomocephalic/atraumatic, no bruits auscultated CV: +S1/S2, regular rate and rhythm, systolic murmurs grade 2/6 auscultated Respiratory: CTAB, no wheezes, rales, rhonchi GI: +bowel sounds x4, soft, compressible, nontender to palpation, morbid obesity EXT: no clubbing, cyanosis, edema Neuro: Cranial nerves II-XII grossly intact Psych: mood and affect were appropriate Test 07/25/16 13:28 07/25/16 16:19 07/28/16 06:55 Neutrophils (%) (Auto) 59.2% (40-74) Lymphocytes (%) (Auto) 28.3% (14-46) Monocytes (%) (Auto) 10.2% (4-12) Eosinophils (%) (Auto) 1.2% (0-5) Basophils (%) (Auto) 0.8% (0-3) Hemoglobin A1c 5.8% (4.8-5.6) Magnesium Level 2.2mg/dL (1.6-2.6) Troponin T < 0.010ug/L (0.0-0.011) Triglycerides Level 248mg/dL (0-149) Cholesterol Level 229mg/dL (100-199) LDL Cholesterol, Calculated 140.400mg/dL (0-99) VLDL Cholesterol 49.600mg/dL HDL Cholesterol 39mg/dL (>39) Cholesterol/HDL Ratio 5.87 (0.0-4.4) Urine Color Yellow (YELLOW) Urine Appearance Clear (CLEAR,HAZY) Urine pH 5.5 (5.0-8.0) Urine Specific [place] 1.025 (1.003-1.035) Urine Protein Negativemg/dL (NEG,TRACE) Urine Glucose (UA) Negativemg/dL (NEGATIVE) Urine Ketones Negativemg/dL (NEGATIVE) Urine Occult Blood Negative (NEGATIVE) Urine Nitrite Negative (NEGATIVE) Urine Bilirubin Negative (NEGATIVE) Urine Urobilinogen 1.0mg/dL (NORMAL) Urine Leukocyte Esterase Negative (NEGATIVE) Urine RBC 0-2/hpf (0-2) Urine WBC 0-5/hpf (0-5) Urine Epithelial Cells Moderate/hpf (NONE-MOD) Urine Crystals None seen (NONE SEEN) Urine Bacteria Few/hpf (NONE-FEW) Urine Hyaline Casts None/lpf (NONE) Urine Granular Casts None seen (NONE SEEN) Urine Waxy Casts None seen (NONE SEEN) Urine Red Blood Cell Casts None seen (NONE SEEN) Urine White Blood Cell Casts None seen (NONE SEEN) Urine Mucus None seen (None Seen) Urine Trichomonas None seen (NONE SEEN) Urine Yeast None (NONE SEEN) Urinalysis Comment None Urine Culture Reflexed Not indicated White Blood Count 10.0th/mm3 (3.8-10.1) Red Blood Count 5.06mil/mm3 (3.90-5.20) Hemoglobin 14.4g/dL (12.0-15.6) Hematocrit 46.2% (35.0-46.0) Mean Corpuscular Volume 91.3fL (81-100) Mean Corpuscular Hemoglobin 28.5pg (27.0-35.0) Mean Corpuscular Hemoglobin Concent 31.2% (32.0-37.0) Red Cell Distribution Width 15.3% (12.3-15.4) Platelet Count 233bil/L (150-400) Sodium Level 139mEq/L (134-144) Potassium Level 4.8mEq/L (3.5-5.2) Chloride Level 103mEq/L (97-108) Carbon Dioxide Level 23mmol/L (18-29) Blood Urea Nitrogen 19mg/dL (8-27) Creatinine 0.65mg/dL (0.57-1.00) Estimat Glomerular Filtration Rate 130mL/min (>59) Glucose Level 109mg/dL (60-99) Calcium Level 9.2mg/dL (8.5-10.1) Total Bilirubin 0.3mg/dL (0.0-1.2) Aspartate Amino Transf (AST/SGOT) 16U/L (0-50) Alanine Aminotransferase (ALT/SGPT) 12U/L (0-32) Alkaline Phosphatase 74U/L (25-165) Total Protein 6.6g/dL (6.4-8.4) Albumin 3.7g/dL (3.4-5.0) Thyroid Stimulating Hormone (TSH) 3.040uIU/mL (0.450-4.500) Free Thyroxine 1.03ng/dL (0.82-1.77) Discharge Medications Discharge Medications ([Albuterol/Ipratropium]) 3 ML NEBU 3 ML NEB TID Prescribed by: SRAVANI ARIZMENDI MD Aspirin (Aspirin) 81 Mg Tablet 81 MG PO DAILY Prescribed by: TEHSA ERWIN DO Atorvastatin Calcium (Atorvastatin Calcium) 40 Mg Tablet 40 MG PO HS Prescribed by: TESHA ERWIN DO Bimatoprost (Lumigan) 45 Drop/2.5 Ml Ophsoln 1 GTT AFFECT_EYE BID (Reported) Brimonidine Tartrate (Alphagan P) 5 Ml Drops 1 GTT AFFECT_EYE BID (Reported) Clopidogrel (Clopidogrel) 75 Mg Tablet 75 MG PO DAILY Prescribed by: TESHA ERWIN DO Lisinopril (Lisinopril) 30 Mg Tablet 1 TAB PO DAILY Prescribed by: TESHA ERWIN DO Tramadol (Tramadol) 50 Mg Tablet 1 TAB PO DAILY (Reported) As needed ([Albuterol]) 60 PUFF/8 GM INHALER 2 PUFF INHALATION Q4H PRN PRN For Wheezing Prescribed by: SRAVANI ARIZMENDI MD Lorazepam (Ativan) 0.5 Mg Tablet 1 TAB PO DAILY PRN PRN For Anxiety (Reported) Miscellaneous Medications Cholecalciferol (Vitamin D3) (Vitamin D3) 10,000 Unit Capsule 10,000 UNIT PO ( Reported) Additional med instructions Medications have been prescribed you aspirin and Plavix please take them daily as they are to help prevent any further stroke or TIA symptoms. Followup Plan Discharge Diet: Low fat, Low Sodium, Heart Healthy Discharge Activity: Outpatient Physical Therapy (gradually return to normal daily activities) Patient Instructions A new primary care physician has been assigned T Dr. Roshan Polanco please follow-up with him in clinic. You should also follow-up with cardiology within the next 4-6 weeks. Follow-up Provider: Roshan Polanco DO Follow-up with PCP in: 1 week (you have an appointment with Dr. Roshan Polanco your new PCP on 08/05/2016 at 4:00 PM please call [phone] for any further questions) Provider: [facility] Follow-up in: 4 weeks (a referral has been sent to the [facility] for cardiology. Please follow-up with cardiology if you do not hear from them please call [phone] to make an appointment) Time spent Greater than 35 minutes copies to: Roshan Polanco Precious L DO July 28, 2016 12:44
== END 2016-07-28 14:57 | disposition home or self-care (01) | DRG 65 ==
LOC: SED 12:46 → OBSVTOIN 19:27 → MPC 19:27
PROVIDERS: ADMIT Hospitalist; ATTEND Hospitalist
DX: I63.9 Cerebral infarction, unspecified (principal); Z68.43 Body mass index [BMI] 50.0-59.9, adult; J96.10 Chronic respiratory failure, unspecified whether with hypoxia or hypercapnia; E66.01 Morbid (severe) obesity due to excess calories; J44.9 Chronic obstructive pulmonary disease, unspecified; I10 Essential (primary) hypertension; J45.909 Unspecified asthma, uncomplicated; R29.6 Repeated falls; F17.211 Nicotine dependence, cigarettes, in remission; R40.2142 Coma scale, eyes open, spontaneous, at arrival to emergency department; R40.2362 Coma scale, best motor response, obeys commands, at arrival to emergency department; R40.2252 Coma scale, best verbal response, oriented, at arrival to emergency department; Z79.51 Long term (current) use of inhaled steroids; Z99.81 Dependence on supplemental oxygen

== ENCOUNTER 2016-08-04 07:39 | Emergency (ER) | payer MEDICARE, MEDICAID ==
[~2016-08-04] VITALS: Ht 152.4 cm; Wt 120.0 kg
[~2016-08-04 07:39] MED LIST changes: +ASPI-973 PO; +ATOR40TA69 PO; +BIMA2.5D5 AFFECT_EYE; +BRIM5DRO2 AFFECT_EYE; +CHOL-4 PO; +CLOP75TA28 PO; -DULO30CA50 PO; -LISI-610 PO; +LISI30TA5 PO; +LORA-302 PO; -TIZA4TAB4 PO; +TRAM50TA2 PO
[2016-08-04 07:45] VITALS: BP 147/78; PULSE 84; RESP 20; O2SAT 94
--- NOTE | 2016-08-04 09:07 | ED.REPORT ---
HPI-Extremity Problem Lower Date of Service August 04, 2016 ED Provider: Geovanny Antony MD 70 y/o female with a hx of CVA, COPD on 2L of home O2 and HTN presents to the ED complaining of left leg pain and weakness, onset yesterday morning. The pt was seen at the ED 10 days ago for a CVA. She reports she was experiencing some weakness when she was discharged but her condition improved over the next few days. The pt states she had been able to walk with her walker and do her daily activities until yesterday when the left leg pain and left arm numbness significantly increased. The pt reports difficulty walking with the walker due to her left leg pain. She denies any pain or numbness in her right leg. Associated sx include some pressure in the back of her head two days ago which resolved but returned today, dysuria, dyspnea, chills and mild edema in the left lower extremity. She denies chest pain and fever. She states she took a hydrocodone, without any relief. She has been compliant with her medications as prescribed 10 days ago. Pt is currently taking Warfarin. Nursing Notes Stated Complaint: LEFT LEG PAIN Chief Complaint: Extremity Trauma Nursing Notes Reviewed: Yes ([facility], chart difficult to determine complaints) Allergies: Coded Allergies: nickel (Unverified Allergy, Severe, Rash, 07/25/16) Scheduled ([Albuterol/Ipratropium]) 3 ML NEBU 3 ML NEB TID Aspirin (Aspirin) 81 Mg Tablet 81 MG PO DAILY Atorvastatin Calcium (Atorvastatin Calcium) 40 Mg Tablet 40 MG PO HS Bimatoprost (Lumigan) 45 Drop/2.5 Ml Ophsoln 1 GTT AFFECT_EYE BID Brimonidine Tartrate (Alphagan P) 5 Ml Drops 1 GTT AFFECT_EYE BID Clopidogrel (Clopidogrel) 75 Mg Tablet 75 MG PO DAILY Lisinopril (Lisinopril) 30 Mg Tablet 1 TAB PO DAILY Tramadol (Tramadol) 50 Mg Tablet 1 TAB PO DAILY Scheduled PRN ([Albuterol]) 60 PUFF/8 GM INHALER 2 PUFF INHALATION Q4H PRN PRN For Wheezing Lorazepam (Ativan) 0.5 Mg Tablet 1 TAB PO DAILY PRN PRN For Anxiety Miscellaneous Medications Cholecalciferol (Vitamin D3) (Vitamin D3) 10,000 Unit Capsule 10,000 UNIT PO General Time Seen by MD: 09:01 Chief Complaint Other (Left leg pain) Hx Obtained From: Patient Arrived By: Walk-in Onset Occurred: Yesterday Symptom Duration: Since onset Location: : Leg left Quality: Painful Severity: Current: Mild Severity: Maximum: Mild Recent Healthcare: Recent doctor visit Similar Sx Previous: Yes Risk-Extremity Prob Lower NIH Stroke Scale Level of Consciousness: Alert and responsive (0) Ask Month & Age: Both questions right (0) Horizontal EO Movements: None (0) Visual Sullivan: No visual loss (0) Facial Palsy: Normal symmetry (0) Right Arm Motor Drift (10s): No drift 10 sec (0) Left Arm Motor Drift (10s): No drift 10 sec (0) Right Leg Motor Drift (5s): No drift 5 sec (0) Left Leg Motor Drift (5s): Drift, not touch bed (1) Limb Ataxia FNF/Heel-Tilley: No ataxia (0) Sensation (Arms/Legs/Face): No sensory loss (0) Language Aphasia: No aphasia, normal (0) Dysarthria: No dysarthria, normal (0) Extinction/Inattention: No exctinct/inattent (0) NIHSS Score: 1 Time NIHSS Performed: 09:25 Date NIHSS Performed: August 04, 2016 Past Medical History Past Medical History Notes: Admit July 25 through 07/28/2016 with CVA and bilateral lower extremity weakness Past Medical History Sleep apnea Inguinal hernia CVA July 2016, discharge and aspirin and Plavix High grade 80% left internal carotid artery origin stenosis on CT 07/2016, but <50% on carotid U/S 07/2016 angiogram july 2016 Morbid obesity (BMI >50) Reports: Asthma, COPD (on 2 L O2 at baseline), Hypertension, Denies: Diabetes mellitus Past Surgical History Bladder surgery Bowel obstruction Reports: Appendectomy, Hysterectomy Smoking History Former Smoker (quit 2 years ago) Social History Alcohol Use: Denies alcohol use Drug Use: Denies drug use Other Social History: Ambulatory Status Independent Review of Systems Musculoskeletal: Reports: Extremity pain (Left leg) Neurologic: Reports: Headache, Numbness (left leg and left arm) Complete sys rev & neg: except as marked. Physical Exam Initial Vital Signs Vital Signs (First) Date Time Temp Pulse Resp B/P Pulse Ox O2 Delivery O2 Flow Rate FiO2 08/04/16 07:45 36.1 84 20 147/78 94 08/04/16 11:03 Nasal Cannula 2 Initial VS: Reviewed, Vital signs normal Head / Eyes: Atraumatic, Normocephalic, PERRL Neck: Supple, Non-tender, Full range of motion Respiratory: Breath sounds normal, Clear to auscultation, No respiratory distress Cardiovascular: Regular rate & rhythm, Heart sounds normal, Intact distal pulses Abdomen / GI: Soft, Non-tender, No guarding, No rebound, No distention Upper Extremities: Vascular intact, Neuro intact, No swelling, No tenderness Skin: Warm, Dry, No cyanosis Neurologic: Alert, Oriented, Nonfocal Lower Extremity / Pelvis / MS: Atraumatic, No deformity, Neurologic intact, Vascular intact Difficulty raising left leg off the gurney. Ankle / Foot: Atraumatic, Full range of motion, No deformity, Neurologic intact , Vascular intact Interpretation & Diagnostics Interpretation & Diagnostics: PROCEDURE: US VEINOUS LEG DUPLEX UNILATERAL, LEFT IMPRESSION: No deep venous thrombosis identified within the left lower extremity. Dictated by: Jj KING Interpreted: Jessica Hernandez MD on 08/04/2016 at 10:24 Transcribed by: SOPHIA on 08/04/2016 at 10:24 Lab Results Interpretation Result Diagram: 08/04/16 0848 08/04/16 0848 Test 08/04/16 08:48 08/04/16 10:58 White Blood Count 8.0th/mm3 (3.8-10.1) Red Blood Count 5.13mil/mm3 (3.90-5.20) Hemoglobin 14.8g/dL (12.0-15.6) Hematocrit 46.6% (35.0-46.0) Mean Corpuscular Volume 90.8fL (81-100) Mean Corpuscular Hemoglobin 28.8pg (27.0-35.0) Mean Corpuscular Hemoglobin Concent 31.8% (32.0-37.0) Red Cell Distribution Width 15.1% (12.3-15.4) Platelet Count 225bil/L (150-400) Neutrophils (%) (Auto) 58.3% (40-74) Lymphocytes (%) (Auto) 30.3% (14-46) Monocytes (%) (Auto) 9.7% (4-12) Eosinophils (%) (Auto) 1.1% (0-5) Basophils (%) (Auto) 0.4% (0-3) Sodium Level 140mEq/L (134-144) Potassium Level 4.6mEq/L (3.5-5.2) Chloride Level 104mEq/L (97-108) Carbon Dioxide Level 23mmol/L (18-29) Blood Urea Nitrogen 16mg/dL (8-27) Creatinine 0.58mg/dL (0.57-1.00) Estimat Glomerular Filtration Rate 148mL/min (>59) Glucose Level 100mg/dL (60-99) Calcium Level 9.1mg/dL (8.5-10.1) Total Bilirubin 0.4mg/dL (0.0-1.2) Aspartate Amino Transf (AST/SGOT) 16U/L (0-50) Alanine Aminotransferase (ALT/SGPT) 16U/L (0-32) Alkaline Phosphatase 75U/L (25-165) Total Creatine Kinase 50U/L (21-215) Total Protein 6.9g/dL (6.4-8.4) Albumin 3.6g/dL (3.4-5.0) Urine Color Yellow (YELLOW) Urine Appearance Slightly cloudy Urine pH 5.0 (5.0-8.0) Urine Specific Kimberly 1.030 (1.003-1.035) Urine Protein Negativemg/dL (NEG,TRACE) Urine Glucose (UA) Negativemg/dL (NEGATIVE) Urine Ketones Negativemg/dL (NEGATIVE) Urine Occult Blood Negative (NEGATIVE) Urine Nitrite Negative (NEGATIVE) Urine Bilirubin Negative (NEGATIVE) Urine Urobilinogen Normalmg/dL (NORMAL) Urine Leukocyte Esterase Negative (NEGATIVE) Urine RBC 0-2/hpf (0-2) Urine WBC 0-5/hpf (0-5) Urine Epithelial Cells Few/hpf (NONE-MOD) Urine Crystals None seen (NONE SEEN) Urine Bacteria Few/hpf (NONE-FEW) Urine Hyaline Casts None/lpf (NONE) Urine Granular Casts None seen (NONE SEEN) Urine Waxy Casts None seen (NONE SEEN) Urine Red Blood Cell Casts None seen (NONE SEEN) Urine White Blood Cell Casts None seen (NONE SEEN) Urine Mucus Present (None Seen) Urine Trichomonas None seen (NONE SEEN) Urine Yeast None (NONE SEEN) Urinalysis Comment None Urine Culture Reflexed Not indicated Lab Results Interpretation: CBC normal CMP normal UA negative ECG Interpretation ECG Interpretation: Sinuns rhythm. Rate 74. No ischemic abnormality T wave inversion, one in AVL Unchanged from previous ECG on 07/25/16 Time: 10:08 CT Head Interpretation IMPRESSION: No acute intracranial disease process. Dictated by: Jessica Hernandez MD, PhD on 08/04/2016 at 9:14 Approved by: Jessica Hernandez MD, PhD on 08/04/2016 at 9:18 Study: Head CT no contrast Interpretation / Wet Read by: Interpret - Radiologist Re-Eval/Medical Decision Med Decision/Clinical Course This is a 70-year-old obese female with a O2 dependent COPD who was recently admitted for suspected CVA. Please see the notes of the admission and the discharge, as the presentation is a bit atypical*bilateral symptoms, and the patient had noncontrast CT that was concerning for a subacute CVA, but the patient's obesity prohibited an actual MRI. She then had CT angiogram of the neck that demonstrated internal carotid artery stenosis, however follow-up ultrasound carotids gave contradictory result with less than 50% stenosis. Also the patient clinically did well, started improving was ambulating, and was discharged on aspirin and Plavix which she reports she has been compliant with. However yesterday at approximately 10 AM she notes she could not use the left leg and could no longer angry. She said she could did not come in because she "did not want to bother anybody" but has not even been able to cannulate the 10 feet to the bathroom, and thus has been realized she is forced to come in for reevaluation. Additionally she noted that yesterday she developed some numbness in the left hand-although not weakness. She has no additional complaints. On exam today she has an NIH stroke scale of 1, which is worse than 0 she had a previous presentation-as she does have weakness with real difficulty lifting the left leg up and having some drift. However on sensory testing of the upper extremity I do not appreciate objective findings of a sensory deficit, and the rest of her neurologic exam is normal. Patient is not a candidate for tPA for multitude of reasons (recent CVA, onset of current symptoms greater than 20 hours, etc...) Repeat CT imaging was obtained today but no acute disease was identified. EKG temperature is normal sinus rhythm. Blood work is normal. I discussed this concerning presentation with new neurologic deficits and inability ambulate with on-call neurologist-and with the patient basically having on presentation with a focal deficit, but now also having some worsening pain which would be atypical for stroke. I obtained an ultrasound of the left lower extremity which was negative for DVT. The recommendations that the patient really needs an MRI for further clarification of the diagnosis and process, but the patient is again confirmed is not fitting in our MRI. So discussed the case with neurology at [facility], and they are accepting the patient in transfer. A speech evaluation has been performed. Source of Hx: Old records Re-Evaluation/Progress : Time of Eval: 11:01 Re-Evaluation/Progress Note: Rechecked pt. Discussed lab, imaging results and diagnosis. Informed the pt of the plan to transfer to MRI for discharge. Pt understands and agrees with plan. F/U instructions and RTER warning given. All questions addressed. Consultation #1: Referral / Consult Name: Alla Harding MD Consulted With: Neurology Call Returned at: 10:15 Operations Specialist: Agrees with eval, Agrees with plan Note: Dr. Harding agress the pt should be transferred to [facility] for MRI. Consultation #2: Call Returned at: 10:29 Operations Specialist: Will see patient, Agrees with eval, Agrees with plan, Accepts admit Note: Discussed the case with Dr. Gimenez at [facility] who will call back after getting the measurement of the MRI to ensure the pt will fit in their MRI. Consultation #3: Call Returned at: 10:53 Operations Specialist: Will see patient, Agrees with eval, Agrees with plan, Accepts admit Note: Dr. Gimenez at [facility] will return call when a bed is available. Discharge & Departure Impression: Primary Impression: CVA (cerebral vascular accident) CVA mechanism: unspecified Qualified Code: I63.9 - Cerebral infarction, unspecified Additional Impressions: Left leg weakness Left upper extremity numbness Lower extremity pain Laterality: left Qualified Code: M79.605 - Pain in left leg Disposition: Transfer, Acute Care Facility Transfer Requested at: 10:20 Call returned time (1029) Receiving Hospital: [facility] Transfer Accepted: Yes Transfer Accepted at: 10:29 Patient Status: Stable Patient Informed: Yes Discharge Condition All VS Reviewed: Yes Condition: Stable Referrals: Kunal Upton MD (PCP) Scribe Attestation Portions of this note were transcribed by Roxann Luis. I, , personally performed the history, physical exam and medical decision-making;I reviewed and confirmed the accuracy of the information in the transcribed note. Signed by Ernie Maxwell. 08/04/16 1132 copies to: Kunal Upton MD, Matthew F MD August 04, 2016 09:07 Roxann Luis August 04, 2016 09:29
--- NOTE | 2016-08-04 09:19 | DRSVH ---
PROCEDURE: CT BRAIN WITHOUT CONTRAST ([id number]) INDICATIONS: left leg and hand weakness, TECHNIQUE: Noncontrast 4.5 mm thick angled axial sections acquired from the foramen magnum to the vertex, with c oronal reformats. COMPARISON: [facility], CT, CT ANGIO BRAIN AND NECK, 07/27/2016, 14:57. [facility], CT, CT HEAD WO CONTRAST, 08/15/2015, 1:20 PM. [facility], CT, BRAIN W/O CONTRA ST, 01/17/2011, 23:05. [facility], CT, CT BRAIN WO CON, 07/25/2016, 16:02. FINDINGS: Image quality: Excellent. CSF spaces: Basal cisterns are patent. No extra-axial fluid collections. The ventricles are symmet fabio in size and shape. Brain: No intracranial bleeds or masses. There is cerebral volume loss for age, with resultant vent ricular and sulcal prominence. There are periventricular and deep white matter chronic small vessel ischemic changes. There is intracranial internal carotid artery atherosclerosis. Skull and face: Calvarium and visualized facial bones appear intact, without suspicious lesions. Sinuses: Visualized sinuses and mastoids are clear. IMPRESSION: No acute intracranial disease process. Dictated by: Jessica Hernandez MD, PhD on 08/04/2016 at 9:14 Approved by: Jessica Hernandez MD, PhD on 08/04/2016 at 9:18
[2016-08-04] MEDS ORDERED: Ondansetron 2 mg/mL 2 mL Inj IVPUSH ONE (09:30)
[2016-08-04] MEDS: HYDROmorphone 0.5 mg/0.5 mL iSecure Syringe IVPUSH PRN ×2 (09:55→11:35)
[2016-08-04 09:58] LABS: BASOPHILS % (AUTO) 0.4 % (0-3); EOSINOPHILS % (AUTO) 1.1 % (0-5); MONOCYTES % (AUTO) 9.7 % (4-12); Mean Corpuscular Hemoglobin 28.8 pg (27.0-35.0); Mean Corpuscular Volume 90.8 fL (81-100); NEUTROPHILS % (AUTO) 58.3 % (40-74); Platelet Count 225 bil/L (150-400)
--- NOTE | 2016-08-04 10:25 | DRSVH ---
PROCEDURE: US VEINOUS LEG DUPLEX UNILATERAL, LEFT INDICATIONS: Pain LLE TECHNIQUE: Real-time imaging, as well as color and pulse Doppler interrogation, were performed of the lower extr emity deep veins from the inguinal ligament to the popliteal fossa. COMPARISON: None. FINDINGS: The deep veins are normally compressible, and free of intraluminal thrombus. Color and pu lse Doppler demonstrate normal phasic intraluminal flow. There is normal augmentation response to di stal compression maneuver. IMPRESSION: No deep venous thrombosis identified within the left lower extremity. Dictated by: Jj Butler [facility] Interpreted: Jessica Hernandez MD on 08/04/2016 at 10:24 Transcribed by: SOPHIA on 08/04/2016 at 10:24 Approved by: Jessica Hernandez MD, PhD on 08/04/2016 at 15:02
[2016-08-04 11:03] VITALS: BP 153/68; PULSE 74; RESP 14; O2SAT 94
[2016-08-04 11:21] LABS: APPEARANCE,URINE SLIGHTLY CLOUDY (CLEAR,HAZY); COLOR,URINE YELLOW (YELLOW); OCCULT BLOOD,URINE NEGATIVE (NEGATIVE); UROBILINOGEN,URINE NORMAL (NORMAL)
--- NOTE | 2016-08-04 11:31 | NUR ---
Evaluation completed. Please go to "Notes" then click on "Assessments and Notes" (bottom left corner of screen). Then select appropriate discipline tab on top of screen.
[2016-08-04] MEDS ORDERED: ProchlorPERazine 5 mg/mL 2 mL Inj IVPUSH ONE (11:50)
[2016-08-04 12:02] VITALS: BP 160/75; PULSE 74; RESP 18; O2SAT 93
[2016-08-04 13:45] VITALS: BP 112/50; PULSE 65; RESP 16; O2SAT 96
[2016-08-04 16:11] VITALS: BP 127/80; PULSE 72; RESP 16; O2SAT 95
== END 2016-08-04 15:55 | disposition short-term general hospital (02) ==
LOC: SED 07:39
DX: I63.9 Cerebral infarction, unspecified (principal); M79.605 Pain in left leg; M62.81 Muscle weakness (generalized); J44.9 Chronic obstructive pulmonary disease, unspecified; I10 Essential (primary) hypertension; E66.01 Morbid (severe) obesity due to excess calories; Z68.43 Body mass index [BMI] 50.0-59.9, adult; Z86.73 Personal history of transient ischemic attack (TIA), and cerebral infarction without residual deficits; Z99.81 Dependence on supplemental oxygen; Z87.891 Personal history of nicotine dependence; Z79.82 Long term (current) use of aspirin; Z79.51 Long term (current) use of inhaled steroids; Z79.01 Long term (current) use of anticoagulants
CPT/HCPCS: 36415; 51701; 70450; 80053; 81000; 82550; 85025; 92610; 93005; 93970; 96374; 96375; 96376; 99285; J0780; J1170; J2405

== ENCOUNTER 2016-10-12 13:42 | Emergency (ER) | payer MEDICARE, MEDICAID ==
[~2016-10-12] VITALS: Ht 152.4 cm; Wt 106.4 kg
[2016-10-12 13:45] VITALS: BP 158/74; PULSE 81; RESP 20; O2SAT 93
--- NOTE | 2016-10-12 16:13 | ED.REPORT ---
HPI-Extremity Problem Lower Date of Service Oct 12, 2016 ED Provider: History of Present Illness: 70yo female with L calf lateral pain x 1 month after sustaining a ground level fall at home. Pain persists and makes ambulation difficult. She is s/p CVA in Jul, 2016 which affected L side. She denies any weakness or change in sensation/motor function. Nursing Notes Stated Complaint: SEVERE PAIN IN LT LEG Chief Complaint: Extremity Trauma Nursing Notes Reviewed: Yes Allergies: Coded Allergies: nickel (Unverified Allergy, Severe, Rash, 07/25/16) Scheduled ([Albuterol/Ipratropium]) 3 ML NEBU 3 ML NEB TID Aspirin (Aspirin) 81 Mg Tablet 81 MG PO DAILY Atorvastatin Calcium (Atorvastatin Calcium) 40 Mg Tablet 40 MG PO HS Bimatoprost (Lumigan) 45 Drop/2.5 Ml Ophsoln 1 GTT AFFECT_EYE BID Brimonidine Tartrate (Alphagan P) 5 Ml Drops 1 GTT AFFECT_EYE BID Clopidogrel (Clopidogrel) 75 Mg Tablet 75 MG PO DAILY Lisinopril (Lisinopril) 30 Mg Tablet 1 TAB PO DAILY Tramadol (Tramadol) 50 Mg Tablet 1 TAB PO DAILY Scheduled PRN ([Albuterol]) 60 PUFF/8 GM INHALER 2 PUFF INHALATION Q4H PRN PRN For Wheezing Lorazepam (Ativan) 0.5 Mg Tablet 1 TAB PO DAILY PRN PRN For Anxiety Miscellaneous Medications Cholecalciferol (Vitamin D3) (Vitamin D3) 10,000 Unit Capsule 10,000 UNIT PO General Time Seen by MD: 16:05 Chief Complaint Leg injury left Hx Obtained From: Patient Arrived By: Walk-in Onset Occurred: More than a week ago... (1 month) Symptom Duration: Since onset Caused by: Fall on ground Context: Occurred at: Home injury Location: : Leg left Quality: Aching, Dull Severity: Current: Mild Severity: Maximum: Mild Associated with: Denies: "Pop" felt or heard, Abdominal pain, Chest pain, Fever , Numb extremities, Unable to walk, Weakness Pertinent Negative: Pt denies other symptoms Exacerbated by: Movement Relieved by: Rest Recent Healthcare: No recent doctor visit Similar Sx Previous: No Risk-Extremity Prob Lower Well's Criteria for DVT Well's DVT Score: 0 pts (low risk 5%) Past Medical History Past Medical History Notes: Admit July 25 through 07/28/2016 with CVA and bilateral lower extremity weakness Past Medical History Sleep apnea Inguinal hernia CVA July 2016, discharge and aspirin and Plavix High grade 80% left internal carotid artery origin stenosis on CT 07/2016, but <50% on carotid U/S 07/2016 angiogram july 2016 Morbid obesity (BMI >50) Reports: Asthma, COPD, Hypertension Reports: Morbid Obesity Past Surgical History Bladder surgery Bowel obstruction Reports: Appendectomy, Hysterectomy Smoking History Former Smoker Social History Alcohol Use: Denies alcohol use Drug Use: Denies drug use Other Social History: Ambulatory Status Independent Review of Systems Constitutional: Denies: Chills, Fever Musculoskeletal: Reports: Extremity pain, Extremity swelling, Denies: Joint swelling Respiratory: Denies: Pleuritic pain, Shortness of breath, Wheezing Cardiovascular: Denies: Chest pain GI: Denies: Abdominal pain Physical Exam Initial Vital Signs Vital Signs (First) Date Time Temp Pulse Resp B/P Pulse Ox O2 Delivery O2 Flow Rate FiO2 10/12/16 13:45 36.6 81 20 158/74 93 Room Air Initial VS: Reviewed Lower Extremity / Pelvis / MS: Atraumatic, No edema Left Knee: Negative: Ecchymosis present, Erythema present, ROM reduced, Swelling present..., Tenderness present... Left Leg / Calf: Positive: Tenderness present... (Mild), Negative: Ecchymosis present, Erythema present, Rajesh's sign positive, L calf > R calf, Neuro deficit present, Pulses distal decreased, Swelling present..., Warmth present Respiratory / Chest: Atraumatic, Breath sounds NL, Breath sounds = bilat Cardiovascular: Heart rate NL, Regular rhythm, Heart sounds NL Neurologic: Oriented X3, Speech NL, No motor deficits, No sensory deficits Interpretation & Diagnostics Lab Results Interpretation Result Diagram: 10/12/16 1705 Test 10/12/16 17:05 White Blood Count 12.7th/mm3 (3.8-10.1) Red Blood Count 4.94mil/mm3 (3.90-5.20) Hemoglobin 14.4g/dL (12.0-15.6) Hematocrit 44.5% (35.0-46.0) Mean Corpuscular Volume 90.1fL (81-100) Mean Corpuscular Hemoglobin 29.1pg (27.0-35.0) Mean Corpuscular Hemoglobin Concent 32.4% (32.0-37.0) Red Cell Distribution Width 14.9% (12.3-15.4) Platelet Count 294bil/L (150-400) Neutrophils (%) (Auto) 65.1% (40-74) Lymphocytes (%) (Auto) 26.2% (14-46) Monocytes (%) (Auto) 7.4% (4-12) Eosinophils (%) (Auto) 0.7% (0-5) Basophils (%) (Auto) 0.2% (0-3) Prothrombin Time 10.0sec (8.1-12.5) Prothromb Time International Ratio 0.94ratio X-Ray Interpretation Xray Interpretation: Patient Name: JULIANNA THOMAS MR#: [id number] Location: SED Ordering Phys: Trung Peters PAC Date of Service: 10/12/16 1614 PROCEDURE: X-RAY LEFT TIBIA/FIBULA, TWO VIEWS ([id number]) INDICATIONS: pain proximal lateral calf TECHNIQUE: 2 views of the tibia and fibula were acquired. COMPARISON: None. FINDINGS: Bones: No fractures or dislocations. No suspicious bony lesions. Soft tissues: No suspicious soft tissue calcifications or masses. IMPRESSION: Source of proximal catheter pain is not identified. Dictated by: Jean-Paul Woods M.D. on 10/12/2016 at 16:52 Approved by: Jean-Paul Woods M.D. on 10/12/2016 at 16:52 US Soft Tissue/Musculoskeletal Patient Name: JULIANNA THOMAS MR#: [id number] Location: SED Ordering Phys: Trung Peters PAC Date of Service: 10/12/16 1804 PROCEDURE: US VEINOUS LEG DUPLEX UNILATERAL, LEFT INDICATIONS: 70 year-old female with left leg pain. TECHNIQUE: Real-time imaging, as well as color and pulse Doppler interrogation, were performed of the lower extremity deep veins from the inguinal ligament to the popliteal fossa. COMPARISON: [facility], US, US VENOUS LEG DPLX UNI LT, 08/04/2016, 9:47. FINDINGS: The deep veins are normally compressible, and free of intraluminal thrombus. Color and pulse Doppler demonstrate normal phasic intraluminal flow. There is normal augmentation response to distal compression maneuver. IMPRESSION: No sonographic evidence for left lower extremity deep venous thrombosis. Dictated by: Az Tavera M.D. on 10/12/2016 at 19:43 Approved by: Az Tavera M.D. on 10/12/2016 at 19:43 Re-Eval/Medical Decision Med Decision/Clinical Course X-ray negative, case discussed with Dr. Denis who advises US to r/o DVT. Venous duplex of LLE was negative for clot. Pt. is slightly below normal range on INR for someone taking coumadin. Advised 1 extra dose tonight and recheck INR on 10/14 at PCP's office. BP improved after pain meds and low dose of 12.5mg HCTZ. Differential Diagnosis: Positive: Strain Counseled Regarding: Diagnosis, Lab results, Need for follow-up, When/why to return to ED Discharge & Departure Departure Notes BP 166/88 on recheck Impression: Primary Impression: Lower extremity pain Laterality: left Qualified Code: M79.605 - Pain in left leg Additional Impressions: Anticoagulated on Coumadin Hypertension Hypertension type: essential hypertension Qualified Code: I10 - Essential ( primary) hypertension Disposition: Home Patient Instructions: Arthritis (ED) Additional Instructions: Rest, local heat, take meds as previously prescribed. Take Naprosyn as needed for pain, but get INR rechecked on 10/14. Return to ER if anything worsens. Referrals: Sharmaine Loaiza DO 2-3 days recheck, leg pain, INR and BP EDSupervising Provider for APC: Gordon Denis Christopher R PAC Oct 12, 2016 16:12
--- NOTE | 2016-10-12 16:55 | DRSVH ---
PROCEDURE: X-RAY LEFT TIBIA/FIBULA, TWO VIEWS ([id number]) INDICATIONS: pain proximal lateral calf TECHNIQUE: 2 views of the tibia and fibula were acquired. COMPARISON: None. FINDINGS: Bones: No fractures or dislocations. No suspicious bony lesions. Soft tissues: No suspicious soft tissue calcifications or masses. IMPRESSION: Source of proximal catheter pain is not identified. Dictated by: Jean-Paul Woods M.D. on 10/12/2016 at 16:52 Approved by: Jean-Paul Woods M.D. on 10/12/2016 at 16:52
[2016-10-12 17:13] LABS: BASOPHILS % (AUTO) 0.2 % (0-3); EOSINOPHILS % (AUTO) 0.7 % (0-5); MONOCYTES % (AUTO) 7.4 % (4-12); Mean Corpuscular Hemoglobin 29.1 pg (27.0-35.0); Mean Corpuscular Volume 90.1 fL (81-100); NEUTROPHILS % (AUTO) 65.1 % (40-74); Platelet Count 294 bil/L (150-400)
[2016-10-12 17:30] LABS: INR 0.94 ratio
[2016-10-12 19:45] VITALS: BP 180/101; PULSE 85; RESP 18; O2SAT 98
[2016-10-12] MEDS ORDERED: HYDROcodone-APAP 5-325 mg Tablet PO ONE (19:45)
--- NOTE | 2016-10-12 19:45 | DRSVH ---
PROCEDURE: US VEINOUS LEG DUPLEX UNILATERAL, LEFT INDICATIONS: 70 year-old female with left leg pain. TECHNIQUE: Real-time imaging, as well as color and pulse Doppler interrogation, were performed of the lower extr emity deep veins from the inguinal ligament to the popliteal fossa. COMPARISON: [facility], US, US VENOUS LEG DPLX UNI LT, 08/04/2016, 9:47. FINDINGS: The deep veins are normally compressible, and free of intraluminal thrombus. Color and pu lse Doppler demonstrate normal phasic intraluminal flow. There is normal augmentation response to di stal compression maneuver. IMPRESSION: No sonographic evidence for left lower extremity deep venous thrombosis. Dictated by: Az Tavera M.D. on 10/12/2016 at 19:43 Approved by: Az Tavera M.D. on 10/12/2016 at 19:43
[2016-10-12] MEDS ORDERED: Ondansetron 8 mg ODT Tablet PO ONE (19:55)
[2016-10-12 20:37] VITALS: BP 166/88; PULSE 73; RESP 20; O2SAT 95
[2016-10-12 21:01] VITALS: BP 166/88; PULSE 73; RESP 20; O2SAT 95
== END 2016-10-12 21:01 | disposition home or self-care (01) ==
LOC: SED 13:42
DX: M79.605 Pain in left leg (principal); I10 Essential (primary) hypertension; W18.30XA Fall on same level, unspecified, initial encounter; Y92.009 Unspecified place in unspecified non-institutional (private) residence as the place of occurrence of the external cause; Y93.89 Activity, other specified; Y99.8 Other external cause status; J45.909 Unspecified asthma, uncomplicated; J44.9 Chronic obstructive pulmonary disease, unspecified; E66.01 Morbid (severe) obesity due to excess calories; Z68.42 Body mass index [BMI] 45.0-49.9, adult; Z86.73 Personal history of transient ischemic attack (TIA), and cerebral infarction without residual deficits; Z87.891 Personal history of nicotine dependence; Z79.01 Long term (current) use of anticoagulants; Z79.82 Long term (current) use of aspirin